=== PATIENT | male | born 1980 | race Caucasian/White ===

== ENCOUNTER 2017-05-09 00:50 | Emergency (ER) | payer SELFPAY ==
[~2017-05-09] VITALS: Ht 177.8 cm; Wt 113.4 kg
--- NOTE | ~2017-05-09 | CR72 ---
[facility]. [facility] A Service of [facility] & [facility] RADIOLOGY TEXT RESULTS PATIENT: DOMENICO POP LOCATION: SED : 84 UNIT #: [id number] AGE: [address]: Eduardo Richardson MD SEX: M ORDER DR: [id number] [place] [id number] E MR#: [id number] Acc #: [id number] NAME: DOMENICO POP : 1980 SEX: M STUDY DATE/TIME: 05/09/2017 01:05 UNIT: SED ROOM: STUDY DESCRIPTION: CR Chest Single View Portable Attending Physician: Eduardo Richardson M.D. Ordering Physician: Eduardo Richardson M.D. Primary Care Physician: Primary Care Physician No MEDICAL IMAGING REPORT This report is preliminary unless electronic signature is present. EXAM Portable chest, 05/09 at 0105 hours INDICATIONS Chest pain that started yesterday evening. FINDINGS AP portable chest was obtained. No comparison. Heart size normal. There is infiltrate in both bases which could reflect pneumonia. No pneumothorax. IMPRESSION Bibasilar infiltrates which may reflect pneumonia, particularly on the left. Dictated by... Jason Merino Jr., M.D. THIS IS AN ELECTRONICALLY VERIFIED REPORT Jason Merino Jr., M.D. at 05/09/2017 6:54 AM TIFFANIE/dalia TD: 05/09/2017 02:14 JOB #: [id number] MEDICAL IMAGING REPORT Page 1 of 1
--- NOTE | ~2017-05-09 | CT16 ---
[facility] A Service of [facility] & [facility] RADIOLOGY TEXT RESULTS PATIENT: DOMENICO POP LOCATION: SED : 84 UNIT #: [id number] AGE: [address]: Eduardo Richardson MD SEX: M ORDER DR: [id number] [address] [address] [id number] E MR#: [id number] Acc #: [id number] NAME: DOMENICO POP : 1980 SEX: M STUDY DATE/TIME: 05/09/2017 01:56 UNIT: SED ROOM: STUDY DESCRIPTION: CT Angio Chest for PE Attending Physician: Eduardo Richardson M.D. Ordering Physician: Eduardo Richardson M.D. Primary Care Physician: Primary Care Physician No MEDICAL IMAGING REPORT This report is preliminary unless electronic signature is present. EXAM Chest CTA, 05/09 at 01:56 INDICATIONS Shortness of air and midsternal chest pain that started yesterday evening. Pain rates 8 out of 10. TECHNIQUE Axial images were obtained through the chest following IV contrast administration. 3-D reformats were obtained. No comparison. This CT exam was performed with one or more of the following radiation dose reduction techniques: Automatic exposure control, adjustment of mA and/or kV according to patient size, and iterative reconstruction. FINDINGS There is no pulmonary embolism or aortic dissection. There is a marciano mass in the AP window measuring at least 4.2 x 2.7 cm. An adjacent AP window node measures 11 mm, short axis. There is a subcarinal mass measuring 3.6 x 3.8 cm. Left hilar adenopathy measures 2.1 x 2.0 cm. Right hilar node measures 2.1 x 1.6 cm. No axillary adenopathy is seen. There is a lobular mass in the left lower lobe measuring 1.5 x 1.2 cm. There is some adjacent satellite micronodules. There is atelectasis in both lung bases. There are no suspicious osseous lesions. Upper abdomen demonstrates hepatic steatosis. IMPRESSION 1. No pulmonary embolism or aortic dissection. 2. Mediastinal and bilateral hilar adenopathy suspicious for malignancy, either metastatic disease or lymphoma. Additionally, there is a lobular mass with some adjacent micronodules in the left lower lobe. This could potentially reflect a primary malignancy or metastatic disease. It could also be of granulomatous origin. Follow up with a PET CT is recommended. [facility] A Service of [facility] RADIOLOGY TEXT RESULTS PATIENT: DOMENICO POP LOCATION: [facility] : [birth year] UNIT #: [id number] AGE: [address]: Eduardo Richardson MD SEX: M ORDER DR: 3. Atelectasis in the lung bases. 4. Fatty liver. Dictated by... Jason Merino Jr., M.D. THIS IS AN ELECTRONICALLY VERIFIED REPORT Jason Merino Jr., M.D. at 05/09/2017 6:54 AM TIFFANIE/dalia TD: 05/09/2017 02:52 JOB #: [id number] MEDICAL IMAGING REPORT Page 1 of 1
--- NOTE | ~2017-05-09 | EKG ---
PATIENT: DOMENICO POP UNIT #: [id number] Ventricular Rate: 77 BPM Atrial Rate: 77 BPM P-R Interval: 168 ms QRS Duration: 88 ms Q-T Interval: 366 ms QTC Calculation(Bezet): 414 ms P [place]: 36 degrees Calculated R [place]: 8 degrees Calculated T [place]: 13 degrees Diagnosis Line: Normal sinus rhythm Diagnosis Line: Normal ECG Diagnosis Line: No previous ECGs available Diagnosis Line: Confirmed by WENDY DICKERSON MD ([id number]) on Diagnosis Line: 05/09/2017 2:49:30 PM INTERPRETING MD: JAYLA PEREA
[~2017-05-09 00:50] MED LIST: AMOXICILLIN; FIORICET1 TAB PO; IBUPROFEN; NO MEDICATIONS; ZOFRAN PO
[2017-05-09 01:10] LABS: BASOPHIL# 0.2 X10e3 (0-0.3); BASOPHIL% 1.2 % (0-2.5); EOSINOPHIL# 0.3 X10e3 (0-0.7); EOSINOPHIL% 2.1 % (0.0-7.0); HEMATOCRIT 42.5 % (38.0-50.0); HEMOGLOBIN 14.9 gm/dL (13.0-16.0); LYMPHOCYTE% 23.7 % (17.0-45.0); MEAN CELL VOLUME 89.7 FL (83-96); MEAN CORPUSCULAR HEMOGLOBIN 31.5 PG (28-34); MEAN CORPUSCULAR HGB CONC 35.1 g/dL (30-36); MEAN PLATELET VOLUME 8.4 FL (6.5-11.5); MONOCYTE# 1.3 X10e3 (0-1.0); MONOCYTE% 9.7 % (3.0-12.0); NEUTROPHIL# 8.2 X10e3 (1.5-7.1); NEUTROPHIL% 63.3 % (40-75); PLATELET COUNT 268 X10e3 (140-420); RED BLOOD COUNT 4.73 X10e (3.90-5.60); RED CELL DISTRIBUTION WIDTH 13.2 % (11.0-15.5); WHITE BLOOD COUNT 12.9 X10e3 (4.0-10.5)
[2017-05-09 01:14] LABS: DIFF IND NO
[2017-05-09 01:18] LABS: INR 1.2; PROTHROMBIN TIME (PATIENT) 13.3 SECONDS (9.5-12.4)
[2017-05-09 01:25] LABS: PARTIAL THROMBOPLASTIN TIME 26.6 SECONDS (25.6-38.1)
[2017-05-09 01:28] LABS: ALBUMIN SERUM 3.8 g/dL (3.5-5.0); BILIRUBIN, DIRECT 0.1 mg/dL (0.0-0.2); BILIRUBIN,INDIRECT 0.7 mg/dL (0.0-0.9); BILIRUBIN,TOTAL 0.8 mg/dL (0.2-2.0); BUN/CREATININE RATIO 17.27; CALCIUM SERUM 8.9 mg/dL (8.4-10.2); CREATININE SERUM 1.1 mg/dL (0.6-1.4); GLOM FILT RATE Estimated 87.1 mL/min (>60); POTASSIUM 3.5 mmol/L (3.5-5.1); PROTEIN TOTAL SERUM 7.4 g/dL (6.0-8.3)
[2017-05-09 01:32] LABS: POC - CKMB 1.2 ng/mL (0.0-7.9); POC - TROPONIN <0.05 ng/mL (<=0.05)
[2017-05-09 02:56] LABS: AMPHETAMINE NEG (NEG); BARBITURATES NEG (NEG); BENZODIAZEPINES NEG (NEG); COCAINE NEG (NEG); MARIJUANA NEG (NEG); OPIATES NEG (NEG); TRICYCLIC ANTIDEPRESSANTS NEG (NEG); U METHADONE NEG (NEG)
[2017-05-09 02:57] LABS: POC - CKMB <1.0 ng/mL (0.0-7.9); POC - TROPONIN <0.05 ng/mL (<=0.05)
== END 2017-05-09 04:58 ==
LOC: SED 00:50
PROVIDERS: Emergency Medicine
DX: R91.8 Other nonspecific abnormal finding of lung field (principal); F17.210 Nicotine dependence, cigarettes, uncomplicated
CPT/HCPCS: 36415; 71010; 71275; 80048; 80076; 80307; 82553; 83880; 84484; 85025; 85610; 85730; 93005; 96374; 99285; J1885; Q9967